=== PATIENT | female | born 1965 | race Caucasian/White ===

== ENCOUNTER 2017-02-23 20:13 | Emergency (ER) | payer OTHER ==
--- NOTE | 2017-02-23 20:30 | PDOC ---
History of Present Illness - General History Source: Patient Exam Limitations: No Limitations - History of Present Illness Initial Comments: 02/23/17 20:38 The patient is a 51 year old female presenting with her , with no significant past medical history, who presents to the emergency department with abdominal pain for the past 4 days. She states that the pain is localized on the left lower quadrant, ranging from mild to moderate, without radiation or modifying factors. She rates her pain a 7/10 in severity. She also reports chills associated with her chief complaint, as well as soft stool but not necessarily diarrhea. She states that she went to an urgent care today and she was referred to the ED for further evaluation. The patient denies chest pain, shortness of breath, headache and dizziness. Denies fever, chills, nausea, vomit, diarrhea and constipation. Denies dysuria, frequency, urgency and hematuria. Allergies: None Past surgical history: None reported Social history: No alcohol, tobacco or drug use reported <Denny Cat - Last Filed: 02/23/17 20:38> - General History Source: Patient Exam Limitations: No Limitations <Dulce Mckinney - Last Filed: 02/25/17 08:56> - General Chief Complaint: Pain, Acute Stated Complaint: LLQ PAIN SINCE WEDNESDAY Time Seen by Provider: 02/23/17 20:15 Past History <Denny Cat - Last Filed: 02/23/17 20:38> <Dulce Mckinney - Last Filed: 02/25/17 08:56> - Past Medical History Allergies/Adverse Reactions: Allergies Allergy/AdvReac Type Severity Reaction Status Date / Time No Known Allergies Allergy Verified 02/23/17 20:16 Home Medications: Ambulatory Orders Levofloxacin [Levaquin] 750 mg PO DAILY #10 tab 02/23/17 Metronidazole [Flagyl -] 500 mg PO TID #30 tablet 02/23/17 Review of Systems - Review of Systems Able to Perform ROS?: Yes Comments:: 02/23/17 20:39 GENERAL/CONSTITUTIONAL: +Chills. No: fever, weakness, loss of appetite. HEAD, EYES, EARS, NOSE AND THROAT: No: change in vision, ear pain, discharge, sore throat, throat swelling. CARDIOVASCULAR: No: chest pain, lightheadedness, palpitations, syncope RESPIRATORY: No: cough, shortness of breath, wheezing, hemoptysis, stridor. GASTROINTESTINAL: +Abdominal pain. No: nausea, vomiting, diarrhea, rectal bleeding, constipation. GENITOURINARY: No: dysuria, hematuria, frequency, urgency, flank pain. MUSCULOSKELET AL: No: back pain, neck pain, joint pain, muscle swelling or pain SKIN AND BREASTS: No: lesions, pallor, rash or easy bruising. NEUROLOGIC: No: headache, vertigo, paresthesias, weakness ENDOCRINE: No: unexplained weight gain or loss HEMATOLOGIC/LYMPHATIC: No: anemia, easy bleeding, swelling nodes <Denny Cat - Last Filed: 02/23/17 20:38> *Physical Exam - Physical Exam Comments: 02/23/17 20:39 GENERAL: The patient is in no acute distress. HEAD: Normal with no signs of trauma. EYES: PERRLA, EOMI, sclera anicteric, conjunctiva clear. ENT: Ears normal, nares patent, oropharynx clear without exudates. Moist mucous membranes. NECK: Normal range of motion, supple without lymphadenopathy, JVD, or masses. LUNGS: Breath sounds equal, clear to auscultation bilaterally. No wheezes, and no crackles. HEART:Regular rate and rhythm, normal S1 and S2 without murmur, rub or gallop. ABDOMEN: +Left lower quadrant tenderness with guarding and rebound. Soft, normoactive bowel sounds. EXTREMITIES: Normal range of motion, no edema. No clubbing or cyanosis. No erythema, or tenderness. NEUROLOGICAL: Cranial nerves II through XII grossly intact. Normal speech. No focal neurological deficits. MUSCULOSKELETAL: Back non-tender to palpation, no CVA tenderness SKIN: Warm, Dry, normal turgor, no rashes or lesions noted. <Denny Cat - Last Filed: 02/23/17 20:38> ED Treatment Course - LABORATORY CBC & Chemistry Diagram: 02/23/17 20:50 02/23/17 20:50 <Dulce Mckinney - Last Filed: 02/25/17 08:56> Medical Decision Making - Medical Decision Making 02/23/17 20:28 A portion of this note was documented by scribe services under my direction. I have reviewed the details of the note, within reason, and agree with the documentation with the following case summary and management plan Nursing documentation reviewed and incorporated into medical decision making 51 yo F presenting to the ER with a complaint of LLQ pain Subjective fevers, chills No vomiting Soft stools (approximately 3 times per day) No diarrhea No prior episodes like this No recent travel DD: Diverticulitis, Colitis 02/23/17 22:08 Laboratory Tests 02/23/17 02/23/17 02/23/17 20:50 20:50 21:00 WBC 9.9 Hgb 11.8 Hct 34.6 Plt Count 221 Neutrophils % 73.9 Lymphocytes % 18.8 Sodium 133 L Potassium 3.9 Chloride 102 Carbon Dioxide 26 BUN 14 Creatinine 0.7 Random Glucose 133 H Urine Ketones Negative Urine Blood 1+ H Urine Nitrite Negative Ur Leukocyte Esterase Negative Awaiting CT scan 02/23/17 23:11 CT of the abdomen and pelvis: Acute diverticulitis noted involving the sigmoid colon noted to junction with the distal descending colon, no discrete paracolic abscess or drainable fluid collection. Will give dose of Levaquin and Flagyl in the ER. Last patient follow up with her primary care physician as well as GI. Return to the emergency department for any other concerns or complaints. Patient given a copy of her labs as well as CT findings. I discussed the physical exam findings, ancillary test results and final diagnoses with the patient. I answered all of the patient's questions. The patient was satisfied with the care received and felt comfortable with the discharge plan and treatment plan. The patient will call their primary care physician within 24 hours to arrange follow-up and will return to the Emergency Department with any new, persistent or worsening symptoms. 02/25/17 08:49 <Dulce Mckinney - Last Filed: 02/25/17 08:56> *DC/Admit/Observation/Transfer - Attestations Scribe Attestion: 02/23/17 20:39 Documentation prepared by Denny Cat, acting as clinical specialist medical device for Dulce Mckinney MD <Denny Cat - Last Filed: 02/23/17 20:38> - Discharge Dispostion Admit: No <Dulce Mckinney - Last Filed: 02/25/17 08:56> Diagnosis at time of Disposition: Acute diverticulitis - Discharge Dispostion Disposition: HOME Condition at time of disposition: Stable - Prescriptions Prescriptions: Metronidazole [Flagyl -] 500 mg PO TID #30 tablet Levofloxacin [Levaquin] 750 mg PO DAILY #10 tab - Referrals Referrals: Blanco Matthews MD [Staff Physician] - - Patient Instructions Printed Discharge Instructions: DI for Diverticulitis, DI for Diverticulosis, Diverticular Disease (Alternative Therapy) Additional Instructions: Thank you for coming in to the ER Please monitor yourself for fevers Please monitor yourself for worsening lower abdominal pain You will need to follow up with your primary doctor within 2-3 days Please [address] your CT and lab results Return to the ER for any other concerns or complaints - Post Discharge Activity Work/School Note: Back to Work
[2017-02-23] MEDS ORDERED: SODIUM CHLORIDE 1,000 ML IV STA (20:37)
[2017-02-23 20:40] VITALS: BMI 33.5
[2017-02-23 21:05] LABS: PH,URINE 5.5 (4.5-8); URINE APPEARANCE Clear; URINE BILIRUBIN Negative (NEGATIVE); URINE GLUCOSE (UA) Negative (NEGATIVE); URINE KETONE Negative (NEGATIVE); URINE LEUK ESTERASE Negative (NEGATIVE); URINE NITRITE Negative (NEGATIVE); URINE PROTEIN Negative (NEGATIVE); URINE UROBILINOGEN 1.0 E.U/dl (0.2-1.0)
[2017-02-23 21:09] LABS: URINE COLOR YELLOW
[2017-02-23 21:15] LABS: URINE BLOOD 1+ (NEGATIVE)
[2017-02-23 21:29] LABS: BASOPHIL 0.9 % (0-2.0); EOSINOPHIL 0.8 % (0-4.5); MEAN CELL VOLUME 82.4 fl (80-96); NEUTROPHILS 73.9 % (42.8-82.8); PLATELET COUNT 221 K/MM3 (134-434); RDW 11.9 % (11.6-15.6); WHITE BLOOD COUNT 9.9 K/mm3 (4.0-10.8)
[2017-02-23 21:42] LABS: ALBUMIN 3.9 g/dl (3.5-5.0); ALK PHOS 89 U/L (32-92); ANION GAP 5 (8-16); BILIRUBIN,TOTAL 1.8 mg/dl (0.2-1.0); CALCIUM 8.7 mg/dl (8.4-10.2); CO2 26 mmol/L (22-28); CREATININE 0.7 mg/dl (0.6-1.3); GLUCOSE,RANDOM 133 mg/dl (74-106); SGOT/AST 23 U/L (10-42); SGPT/ALT 18 U/L (10-40); TOT PROT 7.3 g/dl (6.4-8.3)
[2017-02-23] MEDS ORDERED: metroNIDAZOLE 500 MG TABLET PO ONE (23:04)
[2017-02-23] MEDS ORDERED: metroNIDAZOLE 250 MG TABLET ONE (23:14)
[2017-02-23] MEDS ORDERED: LEVOFLOXACIN 500 MG TABLET (FP) ONE (23:15)
[2017-02-23] MEDS ORDERED: LEVOFLOXACIN 250 MG TABLET (FP) ONE (23:15)
[2017-02-23 23:21] VITALS: BP 135/89
[2017-02-23 23:22] VITALS: PULSE 106; TEMP 98.9
[2017-02-24] MEDS ORDERED: LEVOFLOXACIN 750 MG TABLET PO ONE (23:05)
== END 2017-02-23 23:35 | disposition home or self-care (01) ==
LOC: FER 20:13
PROC: 3E0337Z Introduction of Electrolytic and Water Balance Substance into Peripheral Vein, Percutaneous Approach (ICD-10-PCS; principal; 2017-02-23)
DX: K57.92 Diverticulitis of intestine, part unspecified, without perforation or abscess without bleeding (principal)
CPT/HCPCS: 36415; 74177-TC; 80053; 81003; 85025; 87086; 87186; 99281-25